=== PATIENT | female | born 1975 | race Caucasian/White ===

== ENCOUNTER 2019-06-11 12:13 | Emergency (ER) | payer OTHER, SELFPAY ==
--- NOTE | 2019-06-11 12:36 | ED.URI ---
HPI - URI/Sore Throat General Chief Complaint: Upper Respiratory Infection Stated Complaint: Cold/Flu symptoms Time Seen by Provider: 06/11/19 12:52 Source: patient and RN notes reviewed Mode of arrival: ambulatory Limitations: no limitations History of Present Illness HPI Narrative: 43-year-old female presents with concern for sore throat that started this morning. Reports nasal drainage and body aches. Reports history of strep. Denies fever, headache, nausea. Reports she smokes and has smoker's cough MD elicited complaint: sore throat Related Data Home Medications Medication Instructions Recorded Confirmed buspirone 15 mg PO BID 06/11/19 06/11/19 fluoxetine 20 mg PO BID 06/11/19 06/11/19 lisinopril 10 mg PO DAILY 06/11/19 06/11/19 lisinopril-hydrochlorothiazide 1 tablet PO DAILY 06/11/19 06/11/19 metoprolol tartrate 25 mg PO BID 06/11/19 06/11/19 omeprazole 40 mg PO DAILY 06/11/19 06/11/19 Allergies Allergy/AdvReac Type Severity Reaction Status Date / Time No Known Allergies Allergy Unverified 07/28/18 15:11 Review of Systems Review of Systems: Narrative: CONSTITUTIONAL: Denies malaise, chills, sweats, or fever. EYES: Denies visual changes, redness, or discharge. ENT: Reports congestion, sinus pain, otalgia. Reports rhinorrhea and sore throat. CARDIOVASCULAR: Denies chest pain, palpitations, or edema. RESPIRATORY: Reports cough. Denies dyspnea. GASTROINTESTINAL: Denies abdominal pain, nausea, vomiting, diarrhea SKIN: Denies rash or itching. MUSCULOSKELETAL: Reports myalgia. NEUROLOGIC: Denies headache. All systems reviewed & are unremarkable except as noted in HPI and below PMFSH Comments At time of signature, agree with nursing past medical, surgical, social and family history. There is no relevant family history pertinent to the presenting complaint Exam Narrative: Exam Narrative: GENERAL: Well-appearing, well-nourished, and in no acute distress. HEAD: Normocephalic EYES: PERRLA, conjunctivae clear ENT: Nares clear, turbinates erythematous, clear discharge. Mucous membranes moist. TM pearly skinner with dull light reflex bilaterally; no tragal tenderness. Oropharynx mildly erythematous without lesions. Tonsils not enlarged and without exudate, no drooling, no hoarseness, no trismus, uvula midline. NECK: Supple. No lymphadenopathy CHEST: Clear to auscultation, breath sounds equal. No wheezing, rhonchi, rales, or stridor. No respiratory distress, speaks in full sentences. HEART: Regular rate and rhythm. No murmur heard. SKIN: Warm, dry, no rash. NEURO: Alert and oriented x3. PSYCH: Normal mood and affect Course Course Emergency Course: Patient is aware of diagnosis, understands and agrees to treatment plan. Anticipatory guidance given. Patient agrees to follow-up as directed and is aware of reasons to seek care at the emergency department. Portions of this record may have been created with voice recognition software Vital Signs Vital signs: Vital Signs Temperature 97.8 F 06/11/19 12:40 Pulse Rate 62 06/11/19 12:40 Respiratory Rate 20 06/11/19 12:40 Blood Pressure 125/69 06/11/19 12:40 Pulse Oximetry 99 06/11/19 12:40 Temperature 97.8 F 06/11/19 12:40 Pulse Rate 62 06/11/19 12:40 Respiratory Rate 20 06/11/19 12:40 Blood Pressure 125/69 06/11/19 12:40 Pulse Oximetry 99 06/11/19 12:40 Reviewed. MDM - URI/Sore Throat MDM Narrative Medical decision making narrative: Differential diagnosis considered: Strep pharyngitis, allergic rhinitis, upper respiratory tract infection, sinusitis, rhinosinusitis, nasopharyngitis. viral pharyngitis, otitis media, otitis externa, pneumonia, bronchitis, viral cough syndrome, viral syndrome, and influenza. Exam findings show no acute concerns or changes; patient is non-toxic appearing and is in no distress. Patient is appropriate for outpatient treatment and follow-up. Lab Data Attestation: I reviewed the patient's lab results. Labs:
[2019-06-11 12:40] VITALS: BP 125/69; PULSE 62; RESP 20; TEMP 36.6; O2SAT 99
== END 2019-06-11 13:07 | disposition home or self-care (01) ==
PROVIDERS: Emergency Provider Nurse Practitioner
DX: J02.0 Streptococcal pharyngitis (principal); I10 Essential (primary) hypertension; K21.9 Gastro-esophageal reflux disease without esophagitis; E11.9 Type 2 diabetes mellitus without complications; F41.9 Anxiety disorder, unspecified
CPT/HCPCS: 87880; 99213; G0463

== ENCOUNTER 2020-01-09 17:08 | Emergency (ER) | payer OTHER, SELFPAY ==
--- NOTE | ~2020-01-09 | XR_ITS ---
EXAMINATION: XR chest 2V DATE: 01/09/2020 17:50 INDICATION: Cough, positive strep, smoker TECHNIQUE: PA and lateral views of the chest are obtained. COMPARISON: None available FINDINGS: The lungs are free of acute opacities. There is no pleural effusion or pneumothorax. The ca rdiomediastinal silhouette is normal. There is moderate thoracic spondylosis. IMPRESSION: 1. No acute cardiopulmonary abnormality. Reviewed, dictated and finalized at location A.
[2020-01-09 17:12] VITALS: BP 119/68; PULSE 69; RESP 20; TEMP 36.7; O2SAT 100
--- NOTE | 2020-01-09 17:22 | ED.URI ---
HPI - URI/Sore Throat General Chief Complaint: Upper Respiratory Infection Stated Complaint: nose sore throat and ears Time Seen by Provider: 01/09/20 17:29 Source: patient Limitations: no limitations History of Present Illness HPI Narrative: Ivonne Bailon is a 44 yo female with a PMH of HTN who comes to express care with a 2 day history of nasal congestion and drainage, R ear pain, and cough. Sore throat when swallows; afebrile. Related Data Home Medications Medication Instructions Recorded Confirmed buspirone 15 mg PO BID 06/11/19 01/09/20 fluoxetine 20 mg PO BID 06/11/19 01/09/20 lisinopril 10 mg PO DAILY 06/11/19 01/09/20 lisinopril-hydrochlorothiazide 1 tablet PO DAILY 06/11/19 01/09/20 metoprolol tartrate 25 mg PO BID 06/11/19 01/09/20 omeprazole 40 mg PO DAILY 06/11/19 01/09/20 cholecalciferol (vitamin D3) 50 mcg PO WEEKLY 01/09/20 01/09/20 Allergies Allergy/AdvReac Type Severity Reaction Status Date / Time No Known Allergies Allergy Unverified 01/09/20 17:34 Review of Systems Review of Systems: Narrative: CONSTITUTIONAL: Denies fever, chills, sweats. EYES: Denies visual changes, redness, discharge. ENT: Has rhinorrhea, has congestion, has sore throat, R otalgia. CARDIOVASCULAR: Denies chest pain, palpitations, edema. RESPIRATORY: Denies dyspnea, wheezing, has cough GASTROINTESTINAL: Denies abdominal pain, nausea, vomiting, diarrhea. GENITOURINARY: Denies dysuria, hematuria, abnormal discharge SKIN: Denies rash or itching. NEUROLOGIC: Denies numbness, or focal weakness. PSYCHIATRIC: Denies anxiety or depression. [facility] Past Medical History Medical History Anxiety CKD (chronic kidney disease) Depression HTN (hypertension) Family History Family History Other Heart disease Hypertension Social History Social History (Updated 01/09/20 @ 19:46 by Maddie Sheets CNP) Smoking status: Never smoker Additional smoking assessment comments: Secondary smoke exposure from and father Comments At time of signature, I agree with nursing past medical, surgical, social and family history. There is no relevant family history pertinent to the presenting complaint. Exam Narrative: Exam Narrative: GENERAL: This is a well-nourished, well-developed patient, in mild distress. HEAD: normocephalic, atraumatic. EYES: Sclera clear/white. Vision is grossly intact. EARS: External ears normal, Hearing grossly intact. NOSE: External nose normal without nasal discharge, nares with redness, has rhinorrhea. THROAT: Mucous membranes moist, posterior pharynx erythema NECK: Neck supple, submandibular tenderness CARDIOVASCULAR: Regular rate and rhythm without murmurs, gallops, or rubs. RESPIRATORY: diminished to auscultation. Breath sounds equal bilaterally. Mild wheezes, rales, or rhonchi.Secondary smoke exposure GASTROINTESTINAL: Abdomen soft, non-tender, SKIN: warm, intact with no suspicious lesions or rash, good texture and turgor.splinter to L thumb, not visible, can feel under skin NEURO: awake, alert, and oriented to person, place and time. There were no obvious focal neurologic abnormalities. Steady gait EXTREMITIES: Normal range of motion. BACK: Nontender without deformity Course Course Emergency Course: Came in with a mixture of respiratory symptoms - sinus congestion, drainage, cough, fatigue. strep test- positive; Chest X ray-no acute cardiopulmonary process Started amoxicillin, albuterol inhaler, 4 days steroids Follow-up with primary care physician Vital Signs Vital signs: Vital Signs Temperature 98.1 F 01/09/20 17:12 Pulse Rate 69 01/09/20 17:12 Respiratory Rate 20 01/09/20 17:12 Blood Pressure 119/68 01/09/20 17:12 Pulse Oximetry 100 01/09/20 17:12 Temperature 98.1 F 01/09/20 17:12 Pulse Rate 69 01/09/20 17:12 Respiratory Rate 20 01/09/20 17:12 Blood
== END 2020-01-09 18:06 | disposition home or self-care (01) ==
PROVIDERS: Emergency Provider Nurse Practitioner; PCP Nurse Practitioner Family
DX: J02.0 Streptococcal pharyngitis (principal); F41.9 Anxiety disorder, unspecified; F32.9 Major depressive disorder, single episode, unspecified; I12.9 Hypertensive chronic kidney disease with stage 1 through stage 4 chronic kidney disease, or unspecified chronic kidney disease; N18.9 Chronic kidney disease, unspecified
CPT/HCPCS: 71046; 87880; 99213; G0463